=== PATIENT | male | born 1965 | race Caucasian/White ===

== ENCOUNTER 2023-01-18 21:04 | Inpatient (IN) | payer SELFPAY ==
[2023-01-18 22:33] LABS: Troponin I 0.239 ng/mL (< 0.028)
[2023-01-18 23:16] VITALS: BMI 27.3
[2023-01-18] MEDS ORDERED: Ondansetron ODT 4 MG TAB PO PRN (23:23)
[2023-01-18] MEDS ORDERED: Acetaminophen 325 MG TAB PO PRN (23:23)
[2023-01-18] MEDS ORDERED: Ondansetron PF 4 MG/2 ML Vial IVP PRN (23:23)
[2023-01-18] MEDS ORDERED: Amlodipine 5 MG TAB PO SCH (23:30)
[2023-01-19 01:48] LABS: Creatinine, Urine 192.78 mg/dL (63-166)
[2023-01-19 04:44] LABS: #Basophils 0.1 thou/uL (0.0-0.2); #Monocytes 0.6 thou/uL (0.11-0.59); %Basophils 0.7 % (0.0-1.0); %Eosinophils 0.3 % (0.0-10.0); %Lymphocytes 35.1 % (21.0-51.0); %Monocytes 8.1 % (0.0-10.0); %Neutrophils 55.5 % (42.0-75.0); Hematocrit 46.2 % (42.0-52.0); Mean Corpuscular HGB CONC 34.6 g/dL (32.0-36.0); Mean Corpuscular Hemoglobin 34.1 pg (27.0-31.0); Mean Corpuscular Volume 98.5 fl (78.0-98.0); Mean Platelet Volume 10.1 fL (7.4-10.4); Platelet Count 174 10x3/uL (130-400); RBC Distribution Width 13.4 % (11.5-14.5); Red Blood Cell (RBC) Count 4.69 mill/uL (4.70-6.10); White Blood Cell (WBC) Count 7.1 10x3/uL (4.8-10.8)
[2023-01-19 05:08] LABS: Anion Gap 13 mmol/L (10-20); BUN (Urea Nitrogen) 9 mg/dL (8.4-25.7); Calc. Creatinine Clearance 122 mL/min (70-130); Calcium 8.8 mg/dL (7.8-10.44); Carbon Dioxide 26 mmol/L (22-29); Chloride 105 mmol/L (98-107); Estimated GFR 102; Glucose 118 mg/dL (70-105); Potassium 3.5 mmol/L (3.5-5.1); Sodium 140 mmol/L (136-145)
[2023-01-19] MEDS ORDERED: Losartan 25 MG TAB PO SCH ×2 (07:00→14:15)
[2023-01-19] MEDS: Nitroglycerin 2% Ointment 1 INCH/1 GM Packet TOP SCH ×2 (07:32→19:55)
[2023-01-19 08:26] LABS: Critical Call Chem Troponin I RESULT DECREASING
[2023-01-19] MEDS ORDERED: Amlodipine 5 MG TAB PO SCH ×2 (09:00→14:15)
[2023-01-19] MEDS ORDERED: hydrALAZINE 10 MG TAB PO PRN (09:02)
[2023-01-19 09:24] LABS: Critical Call Chem Troponin I RESULT DECREASING; Troponin I 0.227 ng/mL (< 0.028)
[2023-01-19 10:54] LABS: Cardiac Risk 2.3 (Less than 4.5)
[2023-01-19] MEDS ORDERED: Aspirin 81 mg Enteric Coated Tablet PO SCH (14:00)
[2023-01-19] MEDS ORDERED: Nebivolol HCl 5 MG TAB PO SCH (14:30)
[2023-01-19 15:36] LABS: Amphetamine Not Detected (NotDetected); Barbiturates Screen Not Detected (NotDetected); Benzodiazepine Screen Not Detected (NotDetected); Cocaine Metabolite Screen Not Detected (NotDetected); Methadone Not Detected (NotDetected); Methamphetamine Not Detected (NotDetected); Opiate Screen Not Detected (NotDetected); Oxycodone Screen Not Detected (NotDetected); Phencyclidine (PCP) Not Detected (NotDetected); THC/Cannabinoid Screen Not Detected (NotDetected); Tricyclic Screen Not Detected (NotDetected)
[2023-01-20 04:46] LABS: #Basophils 0.1 thou/uL (0.0-0.2); #Eosinphils 0.1 thou/uL (0.0-0.7); #Monocytes 0.6 thou/uL (0.11-0.59); %Basophils 0.6 % (0.0-1.0); %Eosinophils 1.5 % (0.0-10.0); %Lymphocytes 27.5 % (21.0-51.0); %Monocytes 7.4 % (0.0-10.0); %Neutrophils 62.6 % (42.0-75.0); Hematocrit 46.3 % (42.0-52.0); Hemoglobin 15.8 g/dL (14.0-18.0); Mean Corpuscular HGB CONC 34.1 g/dL (32.0-36.0); Mean Corpuscular Hemoglobin 34.1 pg (27.0-31.0); Mean Platelet Volume 10.1 fL (7.4-10.4); Platelet Count 178 10x3/uL (130-400); RBC Distribution Width 13.5 % (11.5-14.5); Red Blood Cell (RBC) Count 4.63 mill/uL (4.70-6.10)
[2023-01-20] MEDS: Amlodipine 10 MG TAB PO SCH (05:11)
[2023-01-20 05:15] LABS: Anion Gap 11 mmol/L (10-20); BUN (Urea Nitrogen) 11 mg/dL (8.4-25.7); Calc. Creatinine Clearance 109 mL/min (70-130); Calcium 8.7 mg/dL (7.8-10.44); Carbon Dioxide 26 mmol/L (22-29); Chloride 106 mmol/L (98-107); Estimated GFR 95; Glucose 97 mg/dL (70-105); Potassium 3.8 mmol/L (3.5-5.1); Sodium 139 mmol/L (136-145); Troponin I 0.157 ng/mL (< 0.028)
[2023-01-20] MEDS ORDERED: Losartan 25 MG TAB PO SCH (09:00)
[2023-01-20] MEDS: Aspirin 81 mg Enteric Coated Tablet PO SCH (09:30)
[2023-01-20] MEDS: Nebivolol HCl 5 MG TAB PO SCH (09:31)
[2023-01-20] MEDS: Losartan 25 MG TAB PO SCH (09:31)
[2023-01-21] MEDS: Amlodipine 10 MG TAB PO SCH (05:18)
[2023-01-21 05:33] LABS: #Basophils 0.1 thou/uL (0.0-0.2); #Eosinphils 0.1 thou/uL (0.0-0.7); #Monocytes 0.7 thou/uL (0.11-0.59); %Basophils 0.7 % (0.0-1.0); %Eosinophils 1.2 % (0.0-10.0); %Lymphocytes 34.8 % (21.0-51.0); Hematocrit 48.9 % (42.0-52.0); Hemoglobin 16.6 g/dL (14.0-18.0); Mean Corpuscular HGB CONC 33.9 g/dL (32.0-36.0); Mean Corpuscular Hemoglobin 34.2 pg (27.0-31.0); Mean Corpuscular Volume 100.8 fl (78.0-98.0); Mean Platelet Volume 10.8 fL (7.4-10.4); Platelet Count 198 10x3/uL (130-400); RBC Distribution Width 13.5 % (11.5-14.5); Red Blood Cell (RBC) Count 4.85 mill/uL (4.70-6.10)
[2023-01-21 05:53] LABS: Anion Gap 15 mmol/L (10-20); BUN (Urea Nitrogen) 14 mg/dL (8.4-25.7); Calc. Creatinine Clearance 87 mL/min (70-130); Calcium 9.3 mg/dL (7.8-10.44); Carbon Dioxide 25 mmol/L (22-29); Chloride 101 mmol/L (98-107); Estimated GFR 72; Glucose 86 mg/dL (70-105); Potassium 3.6 mmol/L (3.5-5.1); Sodium 137 mmol/L (136-145)
[2023-01-21] MEDS ORDERED: Losartan 25 MG TAB PO SCH (08:45)
[2023-01-21] MEDS: Aspirin 81 mg Enteric Coated Tablet PO SCH (09:15)
[2023-01-21] MEDS: Losartan 25 MG TAB PO SCH (09:15)
[2023-01-21] MEDS: Nebivolol HCl 5 MG TAB PO SCH ×2 (09:16→17:56)
[2023-01-21] MEDS ORDERED: ADENOSINE 60 MG/20 ML SDV ONE (09:54)
[2023-01-21] MEDS ORDERED: Communication Order-Pharmacy FS SCH (17:00)
[2023-01-22 05:40] LABS: #Basophils 0.1 thou/uL (0.0-0.2); #Eosinphils 0.1 thou/uL (0.0-0.7); #Monocytes 0.7 thou/uL (0.11-0.59); #Neutrophils 4.7 thou/uL (1.40-6.50); %Basophils 0.7 % (0.0-1.0); %Eosinophils 1.5 % (0.0-10.0); %Lymphocytes 32.2 % (21.0-51.0); %Monocytes 8.5 % (0.0-10.0); Hematocrit 48.4 % (42.0-52.0); Hemoglobin 16.6 g/dL (14.0-18.0); Mean Corpuscular HGB CONC 34.3 g/dL (32.0-36.0); Mean Corpuscular Hemoglobin 34.1 pg (27.0-31.0); Mean Corpuscular Volume 99.4 fl (78.0-98.0); Mean Platelet Volume 10.3 fL (7.4-10.4); Platelet Count 190 10x3/uL (130-400); RBC Distribution Width 13.2 % (11.5-14.5); Red Blood Cell (RBC) Count 4.87 mill/uL (4.70-6.10); White Blood Cell (WBC) Count 8.2 10x3/uL (4.8-10.8)
[2023-01-22] MEDS: Amlodipine 10 MG TAB PO SCH (05:57)
[2023-01-22 06:20] LABS: Anion Gap 17 mmol/L (10-20); BUN (Urea Nitrogen) 16 mg/dL (8.4-25.7); Calc. Creatinine Clearance 97 mL/min (70-130); Calcium 9.1 mg/dL (7.8-10.44); Carbon Dioxide 22 mmol/L (22-29); Chloride 102 mmol/L (98-107); Estimated GFR 82; Glucose 86 mg/dL (70-105); Potassium 3.7 mmol/L (3.5-5.1); Sodium 137 mmol/L (136-145)
[2023-01-22] MEDS: Aspirin 81 mg Enteric Coated Tablet PO SCH ×2 (09:16→10:54)
[2023-01-22] MEDS: Losartan 25 MG TAB PO SCH ×2 (09:16→21:17)
[2023-01-22] MEDS: Nebivolol HCl 5 MG TAB PO SCH (09:16)
[2023-01-22] MEDS ORDERED: Lorazepam 0.5 MG TAB PO PRN (13:18)
[2023-01-23 05:42] LABS: #Eosinphils 0.1 thou/uL (0.0-0.7); #Monocytes 0.8 thou/uL (0.11-0.59); #Neutrophils 4.9 thou/uL (1.40-6.50); %Basophils 0.5 % (0.0-1.0); %Lymphocytes 27.5 % (21.0-51.0); %Monocytes 9.8 % (0.0-10.0); %Neutrophils 60.8 % (42.0-75.0); Hematocrit 46.8 % (42.0-52.0); Hemoglobin 16.3 g/dL (14.0-18.0); Mean Corpuscular HGB CONC 34.8 g/dL (32.0-36.0); Mean Corpuscular Hemoglobin 34.6 pg (27.0-31.0); Mean Corpuscular Volume 99.4 fl (78.0-98.0); Mean Platelet Volume 10.4 fL (7.4-10.4); Platelet Count 190 10x3/uL (130-400); RBC Distribution Width 13.4 % (11.5-14.5); Red Blood Cell (RBC) Count 4.71 mill/uL (4.70-6.10)
[2023-01-23] MEDS ORDERED: Sodium Chloride 0.9% 1,000 ML IV SCH (06:00)
[2023-01-23] MEDS ORDERED: fentaNYL 50 mcg/mL 1 mL Vial ONE (06:17)
[2023-01-23 06:18] LABS: Anion Gap 15 mmol/L (10-20); BUN (Urea Nitrogen) 22 mg/dL (8.4-25.7); Calc. Creatinine Clearance 79 mL/min (70-130); Calcium 9.6 mg/dL (7.8-10.44); Carbon Dioxide 24 mmol/L (22-29); Chloride 103 mmol/L (98-107); Estimated GFR 64; Glucose 108 mg/dL (70-105); Potassium 3.9 mmol/L (3.5-5.1); Sodium 138 mmol/L (136-145)
[2023-01-23] MEDS ORDERED: Lidocaine 1% (PF) 30 ML VIAL ONE (06:18)
[2023-01-23] MEDS ORDERED: Midazolam HCl 2 mg/2 ml Vial ONE (06:18)
[2023-01-23] MEDS: Aspirin 81 mg Enteric Coated Tablet PO SCH (06:34)
[2023-01-23] MEDS: Nebivolol HCl 5 MG TAB PO SCH (06:34)
[2023-01-23] MEDS: Amlodipine 10 MG TAB PO SCH (06:34)
[2023-01-23] MEDS: Losartan 25 MG TAB PO SCH (06:34)
[2023-01-23] MEDS ORDERED: Nitroglycerin 50 MG/250 ML BOT 250 ML ONE (07:31)
[2023-01-23] MEDS ORDERED: Sodium Chloride 0.9% 200 ML IV PRN (07:58)
[2023-01-23] MEDS ORDERED: Acetaminophen/Codeine 30-300mg Tablet PO PRN ×2 (07:58)
[2023-01-23] MEDS ORDERED: Nitroglycerin 0.4 MG TAB (25 Tab Bottle) SL PRN (07:58)
[2023-01-23] MEDS ORDERED: Lisinopril 10 MG TAB PO SCH (09:00)
[2023-01-23] MEDS ORDERED: Iopamidol 370 76% 100 ML VIAL ONE (13:19)
[2023-01-23 15:21] VITALS: BP 109/66; TEMP 98.2
[2023-01-23] MEDS ORDERED: Rosuvastatin 20 MG TAB PO SCH (21:00)
== END 2023-01-23 17:25 | disposition home or self-care (01) | DRG 287 ==
LOC: ERS 21:04 → 2SW 22:08
PROVIDERS: ADMIT Student in an Organized Health Care Education/Training Program; ATTEND Student in an Organized Health Care Education/Training Program
PROC: B2111ZZ Fluoroscopy of Multiple Coronary Arteries using Low Osmolar Contrast (ICD-10-PCS; principal; 2023-01-23)
PROC: 4A023N7 Measurement of Cardiac Sampling and Pressure, Left Heart, Percutaneous Approach (ICD-10-PCS; 2023-01-23)
PROC: B2151ZZ Fluoroscopy of Left Heart using Low Osmolar Contrast (ICD-10-PCS; 2023-01-23)
DX: I16.1 Hypertensive emergency (principal); N17.9 Acute kidney failure, unspecified; I10 Essential (primary) hypertension; F19.10 Other psychoactive substance abuse, uncomplicated; R77.8 Other specified abnormalities of plasma proteins; R73.9 Hyperglycemia, unspecified; F10.10 Alcohol abuse, uncomplicated; I07.1 Rheumatic tricuspid insufficiency; J92.9 Pleural plaque without asbestos; Z88.0 Allergy status to penicillin; Z71.6 Tobacco abuse counseling
CPT/HCPCS: 36415; 78452; 80048; 80061; 80306; 82570; 83036; 84300; 84484; 85025; 93005; 93017; 93306; 93458; 99152; A9500; C1769; C1894; J0153; J2001; J2250; J3010; J7050; Q9967

== ENCOUNTER 2025-02-10 15:24 | Emergency (ER) | payer OTHER ==
[~2025-02-10 15:24] MED LIST: Iopamidol-370 76% 500 ML MDV (1 ML CHARGE) ONE
[2025-02-10 18:17] LABS: #Basophils 0.07 10x3/uL (0.0-0.2); #Eosinophils 0.09 10x3/uL (0.0-0.7); #Monocytes 0.76 10x3/uL (0.11-0.59); #Neutrophils 5.58 10x3/uL (1.40-6.50); %Basophils 0.8 % (0.0-1.0); %Eosinophils 1.0 % (0.0-10.0); %Lymphocytes 29.1 % (21.0-51.0); %Monocytes 8.2 % (0.0-10.0); %Neutrophils 60.5 % (42.0-75.0); Hematocrit 52.4 % (42.0-52.0); Hemoglobin 17.0 g/dL (14.0-18.0); Mean Corpuscular Hemoglobin 31.4 pg (27.0-31.0); Mean Corpuscular Volume 96.9 fL (78.0-98.0); Platelet Count 225 10x3/uL (130-400); Red Blood Cell (RBC) Count 5.41 mill/uL (4.70-6.10); White Blood Cell (WBC) Count 9.22 10x3/uL (4.8-10.8)
[2025-02-10 18:48] LABS: ALT (SGPT) 15 U/L (Less than 45); AST (SGOT) 22 U/L (11-34); Albumin 4.0 g/dL (3.1-4.5); Alkaline Phosphatase 55 U/L (40-110); Anion Gap 17 mmol/L (10-20); BUN (Urea Nitrogen) 10 mg/dL (8.4-25.7); Bilirubin, Total 1.2 mg/dL (0.3-1.2); Calc. Creatinine Clearance 0 mL/min (70-130); Calcium 9.5 mg/dL (7.8-10.44); Carbon Dioxide 25 mmol/L (22-29); Chloride 101 mmol/L (98-107); Globulin 3.0 g/dL (2.4-3.5); Glucose 93 mg/dL (70-105); Lipase 15 U/L (8-78); Potassium 4.5 mmol/L (3.5-5.1); Sodium 138 mmol/L (136-145)
[2025-02-10] MEDS ORDERED: Ketorolac Tromethamine 30 MG (1 mL) VIAL ONE (19:28)
[2025-02-10 19:48] LABS: Bacteria/HPF None Seen HPF (None Seen); Glucose, Urine (Dipstick) Normal (Negative); Leukocyte Negative Leu/uL (Negative); Protein, Urine (Dipstick) Negative (Neg-Trace); RBC/HPF 0-3 HPF (0-3); Specific Gravity, Urine 1.024 (1.002-1.036); WBC/HPF 0-3 HPF (0-3)
== END 2025-02-10 21:18 | disposition home or self-care (01) ==
LOC: ERS 15:24
DX: F17.210 Nicotine dependence, cigarettes, uncomplicated (principal); K40.90 Unilateral inguinal hernia, without obstruction or gangrene, not specified as recurrent; I10 Essential (primary) hypertension; I74.5 Embolism and thrombosis of iliac artery; Z55.6 Problems related to health literacy; Z79.899 Other long term (current) drug therapy
CPT/HCPCS: 36415; 74177; 80053; 81001; 83690; 85025; 96374; J1885; Q9967